=== PATIENT | male | born 1965 | race Caucasian/White ===

== ENCOUNTER 2024-08-07 07:41 | Outpatient (RCR) | payer OTHER, SELFPAY ==
[2024-08-07 08:00] VITALS: BP 126/74
[2024-08-07] MEDS: ENTYVIO 255 MG IV (08:13)
[2024-08-07] MEDS: NSS 250 IV (08:13)
[2024-08-07 09:05] VITALS: BP 118/71
== END 2024-08-24 23:59 | disposition home or self-care (01) ==
LOC: OID 07:41
PROVIDERS: ATTENDING PHYSICIAN Internal Medicine Gastroenterology; FAMILY PHYSICIAN Family Medicine
DX: K51.90 Ulcerative colitis, unspecified, without complications (principal)
CPT/HCPCS: 96365; J3380

== ENCOUNTER → 2024-08-29 14:50 | Outpatient (REF) | payer OTHER, SELFPAY | LOC: RAD 14:50 | PROVIDERS: ATTENDING PHYSICIAN Family Medicine | DX: R06.02 Shortness of breath (principal) | CPT/HCPCS: 71046 ==

== ENCOUNTER 2024-10-04 07:52 | Outpatient (RCR) | payer OTHER, SELFPAY ==
[2024-10-04] MEDS: NSS 250 IV (08:17)
[2024-10-04] MEDS: ENTYVIO 255 MG IV (08:18)
[2024-10-04 08:22] VITALS: BP 136/73
[2024-10-04 08:50] VITALS: BP 117/63
[2024-10-04 09:10] VITALS: BP 145/68
== END 2024-10-05 07:51 | disposition home or self-care (01) ==
LOC: OID 07:52
PROVIDERS: ATTENDING PHYSICIAN Internal Medicine Gastroenterology; FAMILY PHYSICIAN Family Medicine
DX: K51.90 Ulcerative colitis, unspecified, without complications (principal)
CPT/HCPCS: 96365; J3380

== ENCOUNTER 2024-11-29 08:34 | Outpatient (RCR) | payer OTHER, SELFPAY ==
[2024-11-29 08:40] VITALS: BP 128/61
[2024-11-29] MEDS: NSS 250 IV (08:56)
[2024-11-29] MEDS: ENTYVIO 255 MG IV (09:01)
== END 2024-11-30 08:45 | disposition home or self-care (01) ==
LOC: OID 08:34
PROVIDERS: ATTENDING PHYSICIAN Internal Medicine Gastroenterology; FAMILY PHYSICIAN Family Medicine
DX: K51.90 Ulcerative colitis, unspecified, without complications (principal)
CPT/HCPCS: 96361; 96365; J3380

== ENCOUNTER 2025-01-29 12:52 | Outpatient (RCR) | payer OTHER, SELFPAY ==
[2025-01-29 13:15] VITALS: BP 115/68
[2025-01-29] MEDS: NSS 250 IV (13:32)
[2025-01-29] MEDS: ENTYVIO 255 MG IV (13:32)
[2025-01-29 14:35] VITALS: BP 110/65
== END 2025-01-30 10:54 | disposition home or self-care (01) ==
LOC: OID 12:52
PROVIDERS: ATTENDING PHYSICIAN Internal Medicine Gastroenterology; FAMILY PHYSICIAN Family Medicine
DX: K51.90 Ulcerative colitis, unspecified, without complications (principal)
CPT/HCPCS: 96361; 96365; J3380

== ENCOUNTER 2025-04-03 07:44 | Outpatient (RCR) | payer OTHER, SELFPAY ==
[2025-04-03 08:02] VITALS: BP 125/73
[2025-04-03] MEDS: ENTYVIO 255 MG IV (08:14)
[2025-04-03] MEDS: NSS 250 IV (08:14)
[2025-04-03 09:23] VITALS: BP 124/67
== END 2025-04-04 09:28 | disposition home or self-care (01) ==
LOC: OID 07:44
PROVIDERS: ATTENDING PHYSICIAN Internal Medicine Gastroenterology; FAMILY PHYSICIAN Family Medicine
DX: K51.90 Ulcerative colitis, unspecified, without complications (principal)
CPT/HCPCS: 96361; 96365; J3380

== ENCOUNTER 2025-05-29 08:29 | Outpatient (RCR) | payer OTHER, SELFPAY ==
[2025-05-29] MEDS: ENTYVIO 255 MG IV (08:57)
[2025-05-29] MEDS: NSS 250 IV (08:58)
[2025-05-29 09:02] VITALS: BP 122/74
[2025-05-29 11:24] VITALS: BP 113/66
== END 2025-05-30 10:56 | disposition home or self-care (01) ==
LOC: OID 08:29
PROVIDERS: ATTENDING PHYSICIAN Internal Medicine Gastroenterology; FAMILY PHYSICIAN Family Medicine
DX: K51.90 Ulcerative colitis, unspecified, without complications (principal)
CPT/HCPCS: 36415; 86480; 96361; 96365; J3380

== ENCOUNTER 2025-07-23 12:52 | Outpatient (RCR) | payer OTHER, SELFPAY ==
[2025-07-23] MEDS: NSS 250 IV (13:23)
[2025-07-23] MEDS: ENTYVIO 255 MG IV (13:24)
[2025-07-23 13:37] VITALS: BP 116/73
[2025-07-23 14:20] VITALS: BP 125/68
== END 2025-07-24 23:59 | disposition home or self-care (01) ==
LOC: OID 12:52
PROVIDERS: ATTENDING PHYSICIAN Internal Medicine Gastroenterology; FAMILY PHYSICIAN Family Medicine
DX: K51.90 Ulcerative colitis, unspecified, without complications (principal)
CPT/HCPCS: 96365; J3380